=== PATIENT | female | born 1975 | race Caucasian/White ===

== ENCOUNTER 2023-03-06 14:13 | Emergency (ER) | payer OTHER, SELFPAY ==
--- NOTE | ~2023-03-06 | XR_ITS ---
Left foot Technique: AP, oblique, and lateral views were obtained. Clinical History: Pain Findings: No acute fracture or dislocation is seen. There are small lucent lesion at the fifth metata rsal shaft with thin sclerotic margin. Osseous alignment is anatomic. Joint spaces are preserved with out erosive or degenerative change. Soft tissues are unremarkable. Impression: No fracture or dislocation. Small lucent lesion present present at the fifth metatarsal shaft with thin sclerotic margin. This is indeterminate, however imaging characteristics are consistent with a benign lesion. Reviewed, dictated and finalized at location . Impression: No fracture or dislocation. Small lucent lesion present present at the fifth metatarsal shaft with thin scl erotic margin. This is indeterminate, however imaging characteristics are consi stent with a benign lesion.
--- NOTE | 2023-03-06 14:24 | ED.LOWEXIN ---
HPI - Extremity Injury (Lower) General Chief Complaint: Extremity Injury, Lower Stated Complaint: INJURED L FOOT Time Seen by Provider: 03/06/23 14:24 Source: patient, RN notes reviewed and old records reviewed Mode of arrival: ambulatory Limitations: no limitations History of Present Illness HPI Narrative: 47-year-old female presents to the [facility] with complaints of left foot pain while playing pickle ball. Patient has been having left heel pain for couple of weeks, worse when she was playing pickleball. Recently purchased a new pair of shoes which she states are comfortable. Related Data Home Medications Medication Instructions Recorded Confirmed No Home Medications 03/06/23 03/06/23 Allergies Allergy/AdvReac Type Severity Reaction Status Date / Time acetaminophen Allergy Intermediate Hives / Verified 03/06/23 14:16 [place] aspirin Allergy Intermediate Hives / Verified 03/06/23 14:16 [place] caffeine Allergy Intermediate Hives / Verified 03/06/23 14:16 Red Face XANTHINE Allergy Intermediate Hives / Uncoded 03/06/23 14:16 Red Face Review of Systems Review of Systems: All systems reviewed & are unremarkable except as noted in HPI and below Constitutional: Constitutional: Reports no additional constitutional complaints Eyes: Eyes: Reports no additional eye complaints ENT: Reports system reviewed and no additional complaints, except as documented Cardiovascular: Cardiovascular: Reports no additional cardiovascular complaints, Denies chest pain and Denies dyspnea Respiratory: Respiratory: Reports no additional respiratory complaints, Denies chest congestion, Denies cough and Denies dyspnea Gastrointestinal: Gastrointestinal: Reports no additional gastrointestinal complaints, Denies abdominal pain, Denies nausea and Denies vomiting Musculoskeletal: Musculoskeletal: Reports as per HPI Integumentary/Breasts: Skin/Breast: Reports system reviewed and no additional complaints, except as docu Neurologic: Reports system reviewed and no additional complaints, except as documented Psychiatric: Psychiatric: Reports no additional psychiatric complaints Allergic/Immunologic: Allergic/Immunologic: Reports no additional allergic/immunologic complaints [facility] Family History Family History Mother Family history of thyroid disease, Onset Age: 50 Hypertension Family history of malignant neoplasm of uterus Father Hypertension Family history of Parkinson's disease Family history of diabetes mellitus in first degree relative Grandparent Family history of pancreatic cancer Family history of heart disease in male family member before age 55 Diabetes mellitus Other Family history of malignant neoplasm Social History Social History Smoking status: Never smoker Alcohol intake: current Comments At the time of my signature, I reviewed and agree with the nursing past medical, surgical, social, and family history. There is no relevant family history pertinent to the patient complaint. Exam Const: General: cooperative, healthy appearing, comfortable, no acute distress, well developed, alert and well nourished Nutritional Appearance: well nourished and overweight Orientation/consciousness: patient oriented x3 Limitations: no limitations HENMT: Head: normal to inspection Ears: hearing grossly normal bilaterally and external ears normal Face/Nose/Sinus: Normal external nose present, Normal nares present, Normal nasal mucous membranes and turbinates present and normal facial exam Face and sinus: normal facial exam Eyes: General: appearance normal, both eyes and all related structures Alignment and Position: alignment normal Periorbital: periorbital findings normal Pupils: Equal, round and reactive pupils present EOM: EOMs intact bilaterally Neck: Neck: normal visual inspectio
[2023-03-06 14:34] VITALS: BP 142/87; PULSE 85; RESP 16; TEMP 36.2; O2SAT 99
== END 2023-03-06 15:10 | disposition home or self-care (01) ==
PROVIDERS: Emergency Provider Nurse Practitioner
DX: M77.32 Calcaneal spur, left foot (principal)
CPT/HCPCS: 73630; 99213; G0463

== ENCOUNTER → 2023-03-22 16:01 | Outpatient (CLI) | payer OTHER, SELFPAY ==
--- NOTE | ~2023-03-22 | US_ITS ---
EXAMINATION: US pelvic complete DATE: 03/22/2023 16:20 INDICATION: Abnormal uterine bleeding . TECHNIQUE: Multiple transabdominal sonographic images of the pelvis were obtained. COMPARISON: None. FINDINGS: Uterus: 9.9 x 4.4 x 5.2 cm. Endometrial complex measures 7 mm. Right Ovary: 2.3 x 1.5 x 2.1 cm. Vascular flow is present. 1.4 cm simple cyst. Left Ovary: 2.1 x 1.4 x 2.0 cm. Vascular flow is present. No adnexal mass. There is no free fluid in the pelvis. IMPRESSION: Endometrial thickness of 7 mm, if post menopausal consider endometrial sampling. Reviewed, dictated and finalized at location K. IMPRESSION: Endometrial thickness of 7 mm, if post menopausal consider endometrial sampling .
== END ==
PROVIDERS: PCP Nurse Practitioner; Visit Provider Nurse Practitioner
DX: N93.8 Other specified abnormal uterine and vaginal bleeding (principal)
CPT/HCPCS: 76856

== ENCOUNTER 2023-06-28 06:37 | Day surgery (SDC) | payer OTHER, SELFPAY ==
[2023-04-13 13:52] VITALS: BMI 37.1
[2023-06-28 07:46] VITALS: BP 133/101; PULSE 86; RESP 20; TEMP 36.9; O2SAT 98
[2023-06-28] MEDS: LACTATED RINGERS 1,000 ML 150 ML IV CONT (07:56)
--- NOTE | 2023-06-28 08:20 | P.PNAN_ITS ---
Anes - Initial Pre Proc Eval Procedure: Operation Date: 06/28/23 09:00 Proposed Procedures p Screening Colonoscopy - Tarik Elizondo MD Date/Time: 06/28/23 08:20 Surgeon: Tarik Elizondo MD Pre Op Diagnosis: Neoplasm Screening Patient Data Age: 48 Gender: F Height: 1.68 m Weight: 101.6 kg Last Vital Signs Temp 36.9 C 06/28/23 07:46 Pulse 86 06/28/23 07:46 Resp 20 06/28/23 07:46 BP 133/101 H 06/28/23 07:46 Pulse Ox 98 06/28/23 07:46 O2 Del Method Room Air 06/28/23 07:46 Allergies Allergy/AdvReac Type Severity Reaction Status Date / Time No Known Allergies Allergy Verified 06/28/23 07:45 Home Medications Medication Instructions Recorded Confirmed Type bupropion HCl 150 mg 24 hr tablet, 150 mg PO USEASDIRECTD 06/06/23 06/28/23 History extended release Patient hx anesthesia problems: none Family hx anesthesia problems: none Results Review: All pre-operative results and documents have been reviewed as part of the pre- operative evaluation. [facility] Past Medical History Medical History (Updated 06/28/23 @ 08:20 by Dalton English MD) Obesity Family History Family History Mother Family history of thyroid disease, Onset Age: 50 Hypertension Family history of malignant neoplasm of uterus Father Hypertension Family history of Parkinson's disease Family history of diabetes mellitus in first degree relative Grandparent Family history of pancreatic cancer Family history of heart disease in male family member before age 55 Diabetes mellitus Other Family history of malignant neoplasm Social History Social History Smoking status: Never smoker Alcohol intake: current Drinks per week: 4 Alcohol use details: socially on weekends Substance use type: does not use Living arrangements: with family Spiritual care concerns: No Anes - Eval Final PreProcedure Day of Procedure 06/28/23 08:20 Patient weight: obese Heart: regular rate and rhythm Lungs: clear to auscultation Airway: Mallampati scale class II Neurological: alert and oriented Last oral intake: >/= 8 hours ASA classification: II Emergent: no Anesthetic plan: proceed Anesthesia type and monitoring: general GIVS and standard monitoring Results Review: All pre-operative results and documents have been reviewed as part of the pre- operative evaluation. Informed Consent: The patient's anesthetic plan and its attendant risks and benefits were discussed with the patient/family/POA. Questions were solicited and answers pr ovided to the satisfaction of the patient/family/POA.
--- NOTE | 2023-06-28 08:38 | PM.HPGS ---
History of Present Illness History of Present Illness Consent: Risks, benefits, and alternatives have been discussed and questions answered. Patient agrees to proceed with procedure. Chief complaint: Neoplasm Screening Narrative: Nusrat Lofton is a 48 year old female here for first screening colonoscopy Review of Systems Constitutional: Constitutional: Denies headache(s) and Denies weakness Eyes: Eyes: Denies blurry vision ENT: Reports Normal hearing present, Denies headache(s) and Denies neck pain Cardiovascular: Cardiovascular: Denies chest pain and Denies dyspnea Respiratory: Respiratory: Denies dyspnea Gastrointestinal: Gastrointestinal: Reports no additional gastrointestinal complaints Genitourinary: Genitourinary: Denies dysuria Musculoskeletal: Musculoskeletal: Denies neck pain Integumentary/Breasts: Skin/Breast: Denies dry skin Neurologic: Reports Normal hearing present, Denies headache(s) and Denies weakness Psychiatric: Psychiatric: Denies anxiety Endocrine: Endocrine: Denies change in body appearance Hematologic/Lymphatic: Hematologic/Lymphatic: Denies easy bleeding Allergic/Immunologic: Allergic/Immunologic: Denies urticaria PMF Past Medical History Medical History (Updated 06/28/23 @ 08:38 by Tarik Elizondo MD) Colon cancer screening Obesity Family History Family History Mother Family history of thyroid disease, Onset Age: 50 Hypertension Family history of malignant neoplasm of uterus Father Hypertension Family history of Parkinson's disease Family history of diabetes mellitus in first degree relative Grandparent Family history of pancreatic cancer Family history of heart disease in male family member before age 55 Diabetes mellitus Other Family history of malignant neoplasm Social History Social History Smoking status: Never smoker Alcohol intake: current Drinks per week: 4 Alcohol use details: socially on weekends Substance use type: does not use Living arrangements: with family Spiritual care concerns: No Meds Home Medications and Allergies Home Medications Medication Instructions Recorded Confirmed Type bupropion HCl 150 mg 24 hr tablet, 150 mg PO USEASDIRECTD 06/06/23 06/28/23 History extended release Allergies Allergy/AdvReac Type Severity Reaction Status Date / Time No Known Allergies Allergy Verified 06/28/23 07:45 Vital Signs Vital Signs - 24 hr 06/28/23 07:46 Temperature 98.4 F Pulse Rate 86 Respiratory Rate 20 Blood Pressure 133/101 H Pulse Oximetry 98 Oxygen Delivery Room Air Exam Const: General: comfortable and no acute distress HENMT: Face/Nose/Sinus: Normal nares present Eyes: General: appearance normal, both eyes and all related structures Neck: Neck: no JVD Resp: Auscultation: clear to auscultation bilaterally Cardio: Rate: regular rate Rhythm: regular rhythm GI: Inspection: non-distended GI Palp: Yes Soft to palpation Skin: General skin exam: normal color Neuro: General: gait normal Speech: normal speech Extrem: General: normal to inspection Psych: Mental Status: mental status grossly normal Assessment and Plan Assessment and plan (1) Colon cancer screening: Code(s): Z12.11 - Encounter for screening for malignant neoplasm of colon Status: Acute Assessment and Plan: colonoscopy
[2023-06-28 08:55] VITALS: BP 128/81; PULSE 78; RESP 18; O2SAT 99
--- NOTE | 2023-06-28 09:04 | WPDANESPN ---
Anes - Prog Note Post-Op Date/Time: 06/28/23 09:04 Cardiovascular status: normal Respiratory status: normal Airway patency: baseline Mental status: baseline Post-Op hydration status: normal Vital Signs: Last Vital Signs Temp 36.9 C 06/28/23 07:46 Pulse 86 06/28/23 07:46 Resp 20 06/28/23 07:46 BP 133/101 H 06/28/23 07:46 Pulse Ox 98 06/28/23 07:46 O2 Del Method Room Air 06/28/23 07:46 Pain Score (VAS): 0/10 I/O: Intake & Output 06/27/23 06/28/23 06/28/23 23:59 07:59 15:59 Intake Total 400 Balance 400 Patient Feedback: Patient satisfied with anesthetic care.
[2023-06-28 09:05] VITALS: BP 127/85; PULSE 78; RESP 16; O2SAT 100
[2023-06-28 09:15] VITALS: BP 127/90; PULSE 74; RESP 15; O2SAT 100
== END 2023-06-28 09:26 | disposition home or self-care (01) ==
PROVIDERS: Visit Provider Internal Medicine Gastroenterology
PROC: 0DJD8ZZ Inspection of Lower Intestinal Tract, Via Natural or Artificial Opening Endoscopic (ICD-10-PCS; CPT 45378; principal; 2023-06-28 09:00)
DX: Z12.11 Encounter for screening for malignant neoplasm of colon (principal); K57.30 Diverticulosis of large intestine without perforation or abscess without bleeding; K64.8 Other hemorrhoids
CPT/HCPCS: 45378